=== PATIENT | female | born 1945 | race Caucasian/White ===

== ENCOUNTER 2016-05-23 08:03 | Day surgery (SDC) | payer MEDICARE ==
[~2016-05-23 08:03] MED LIST: CEFAZOLIN SODIUM 2 GRAM PREMIX 100 ML IV ONE; GENTAMICIN SULFATE 320 MG in SODIUM CHLORIDE 0.9% 100 ML IV PRN; IV START KIT ONE; LACTATED RINGERS 1,000 ML ONE
[2016-05-23] MEDS ORDERED: CEFAZOLIN SODIUM 2 GRAM DUPLEX 50 ML IV PRN (08:30)
[2016-05-23] MEDS ORDERED: KETAMINE HCL UD SYRINGE 100 MG/2 ML IV ONE (08:48)
[2016-05-23] MEDS ORDERED: BUPIVACAINE 0.75% SPINAL AMPUL 2 ML ONE ×2 (08:48→10:58)
[2016-05-23] MEDS ORDERED: ONDANSETRON 4 MG/2ML 2 ML VIAL ONE (08:48)
[2016-05-23] MEDS ORDERED: MIDAZOLAM HCL 1 MG/ML 2ML VIAL ONE ×2 (08:48→10:55)
[2016-05-23] MEDS ORDERED: FENTANYL 100 MCG/2 ML VIAL ONE (08:48)
[2016-05-23] MEDS ORDERED: LIDOCAINE 2% (MULTI DOSE) 10 ML VIAL ONE (08:48)
[2016-05-23] MEDS ORDERED: PROPOFOL 40 ML IV ONE (08:48)
[2016-05-23] MEDS ORDERED: METOCLOPRAMIDE HCL 5 MG/ML 2ML VIAL ONE (08:49)
[2016-05-23] MEDS ORDERED: DEXAMETHASONE SOD PHOS 4 MG/1 ML VIAL ONE (08:49)
[2016-05-23] MEDS ORDERED: BUPIVACAINE 0.5% (PRES FREE) 30 ML VIAL ONE (10:07)
[2016-05-23] MEDS ORDERED: LIDOCAINE 0.5%/EPI 1:200,000 (MULTIDOSE) 50 ML VIAL ONE (10:07)
[2016-05-23] MEDS ORDERED: ESTROGENS,CONJUGATED CREAM 30 G/TUBE VG ONE (10:07)
[2016-05-23] MEDS ORDERED: METRONIDAZOLE 20 APPLIC/70 G TUBE ONE (10:07)
[2016-05-23] MEDS ORDERED: SODIUM CHLORIDE 0.9% 100 ML ONE (10:07)
[2016-05-23] MEDS ORDERED: OPIUM/BELLADONNA ALKALOIDS 1 EACH SUP PR ONE (10:29)
[2016-05-23] MEDS ORDERED: NEOMY SULF/POLYMYXIN B SULFATE 1 ML AMP IR ONE (10:29)
[2016-05-23] MEDS ORDERED: EPIDURAL PROCEDURE TRAY ONE (10:55)
[2016-05-23] MEDS ORDERED: ROPIVACAINE 0.5% 30 ML VIAL ONE (11:20)
[2016-05-23] MEDS ORDERED: PROMETHAZINE HCL 25 MG/ML VIAL IM PRN (11:37)
[2016-05-23] MEDS ORDERED: HYDROMORPHONE HCL 1 MG/ML SYRINGE IV PRN (11:37)
[2016-05-23] MEDS ORDERED: ONDANSETRON 4 MG/2ML 2 ML VIAL IV PRN ×2 (11:37→12:58)
[2016-05-23] MEDS ORDERED: FENTANYL 100 MCG/2 ML VIAL IV PRN (11:37)
[2016-05-23] MEDS ORDERED: ATROPINE SULFATE 0.4 MG/1 ML VIAL IV PRN (11:37)
[2016-05-23] MEDS ORDERED: NALOXONE HCL 0.4 MG/ML VIAL IV PRN (11:37)
[2016-05-23] MEDS ORDERED: LACTATED RINGERS 1,000 ML IV SCH (11:45)
[2016-05-23] MEDS ORDERED: MORPHINE SULFATE 2 MG/ML SYRINGE IV PRN (12:58)
[2016-05-23] MEDS ORDERED: HYDROCODONE/ACETAMINOPHEN 5/325MG TABLET PO PRN (12:58)
[2016-05-23] MEDS ORDERED: LACTATED RINGERS 1,000 ML ONE (13:14)
--- NOTE | 2016-05-23 14:14 | OP ---
JAVIER LOVELACE [id number] DATE OF OPERATION: May 23, 2016 SURGEON: Jared Avalos M.D. NANOSYSTEMS ENGINEER: Cheryl Garcia ANESTHESIA: Spinal. PREOPERATIVE DIAGNOSES: 1. Cystocele grade 2 to 3 with dysfunctional voiding. 2. Urethral hypermobility causing stress incontinence. 3. Secondary idiopathic detrusor overactivity causing urgency. POSTOPERATIVE DIAGNOSES: 1. Cystocele grade 2 to 3 with dysfunctional voiding. 2. Urethral hypermobility causing stress incontinence. 3. Secondary idiopathic detrusor overactivity causing urgency. PROCEDURE: 1. CYSTOSCOPY. 2. TROCAR SUPRAPUBIC CYSTOSTOMY TUBE PLACEMENT WITH DRAINAGE. 3. ANTERIOR MESH CYSTOCELE REPAIR. 4. SUBURETHRAL SLING. SPECIMENS: None. INDICATIONS: Patient is a 71-year-old woman with a long history of urge symptoms and increasing urinary tract infections, seen for a sense of pelvic pain. Urodynamic studies demonstrated a grade 2 to 3 cystocele with mild dysfunctional voiding as well as ureteral hypermobility causing stress incontinence. She does have a previous history of a "retropubic bladder cinch" in , and a hysterectomy. She has elected surgical intervention at this time. FINDINGS: Grade 2 to 3 cystocele with relatively sharp kinking toward the bladder neck. Urethra hypermobility present. No intravesical lesions. At the end of the case, patent ureters were demonstrated bilaterally and there were no other surgical materials were intruding on the bladder or urethra aside from the suprapubic tube. PROCEDURE: The patient was identified and brought to the operating room where spinal anesthetic was applied and she was placed in a dorsal lithotomy position. The lower abdomen, genitalia, and vagina were prepped and draped sterilely. We marked a site 2 cm above the pubic brim in the midline and at the level of the clitoris in the groin folds. These were treated with 0.5% Marcaine and the suprapubic site was opened with a stab incision. Cystoscopy was performed with a 17 Italian scope using water as an irrigant. Findings are reported above. We placed the patient in Trendelenburg position as we used the scope to overdistend the bladder. We then, during expiratory phase, we used a Bard 12 Italian trocar suprapubic tube system to access the high anterior wall of the bladder under direct vision. The trocar and stylet were removed, and the balloon was inflated and seated against the bladder wall. It was allowed to drain throughout the case and ultimately secured at the level of the skin with #2-0 nylon. The cystoscope was removed and replaced with a Guerrier catheter to gravity drainage. A posterior weighted speculum was inserted followed by a Nerstrand type retractor for labial retraction. We identified the position of the bladder neck and then injected 0.5% lidocaine with epinephrine subvesically. Laterally and posteriorly we used injectable saline to complete a hydrodissection. An inverted C incision toward the bladder neck and the vaginal flap elevated away from the bladder base all the way back to the anterior apex of the vagina and to the pelvic sidewalls. We were able to go through the pelvic floor and sweep tissues away past the sacrospinous ligament on both sides. A #2-0 Vicryl sutures was preplaced in the apex midline on the vaginal side. We then used a Capio device to pass the posterior barbed limbs of an Uphold Lite graft into position on the sacrospinous ligaments on both sides. These were pulled back into position in the midline of the graft posteriorly was secured to the preplaced #2-0 Vicryl suture. Next, we tensioned the posterior limbs into a normal position and removed the plastic sleeves and retaining suture. Anteriorly, the lip of the graft was secured subvesically with #2-0 Vicryl sutures. We irrigated with genitourinary irrigant containing some Betadine paint and then closed the vaginal wound with a running #2-0 Vicryl suture. Attention was then turned suburethrally where the tissues were treated with 0.5% lidocaine centrally and injectable saline laterally. We opened a transverse suburethral incision and dissected a pocket for a sling to sit in, and then tunneled out toward the pubis on both sides. The previously treated groin sites were opened with stab incisions, and Halo type carriers were used to come around the medial aspect of the obturator foramen and the tips were delivered into the dissected vaginal tunnels. Carriers were then used to draw a polypropylene mesh graft from the vaginal aspect out to the groin folds on each side. Tensioning was completed with a 20 Italian sound as a suburethral spacer and the sleeves on the graft were removed. With the graft in good position, we irrigated with genitourinary irrigant containing some Betadine paint and closed the vaginal wound with a running #2-0 Vicryl suture. All retractors were then removed, and cystoscopy was repeated. We used a floppy tip wire to check the patency of both ureters. Finding no difficulty there, the cystoscope was withdrawn and a final check on the urethral position was done with a sound. Finding no unwanted upward traction, we irrigated the vagina and then applied estrogen cream to the suture line followed by a vaginal pack containing Flagyl gel. The groin wounds were closed with Dermabond type adhesive underneath Benzoin and SteriStrips. After the suprapubic tube was secured and a Nicolle Pad applied, the patient was taken in stable condition to the post anesthesia room. Sponge and needle counts were correct. Estimated blood loss less than 50 mL. No early complications. Patient tolerated the procedure well and was taken in stable condition to the post anesthesia room. cc: Jared Avalos M.D. Amna Cullen M.D.
== END 2016-05-23 16:39 | disposition home or self-care (01) ==
LOC: SDC 08:03
PROVIDERS: ATTEND Urology
PROC: 0JQC0ZZ Repair Pelvic Region Subcutaneous Tissue and Fascia, Open Approach (ICD-10-PCS; principal; 2016-05-23)
PROC: 0TSD0ZZ Reposition Urethra, Open Approach (ICD-10-PCS; 2016-05-23)
PROC: 0T9B0ZZ Drainage of Bladder, Open Approach (ICD-10-PCS; 2016-05-23)
DX: N81.10 Cystocele, unspecified (principal); N36.41 Hypermobility of urethra; N39.3 Stress incontinence (female) (male); R39.15 Urgency of urination; I10 Essential (primary) hypertension; K21.9 Gastro-esophageal reflux disease without esophagitis; E03.9 Hypothyroidism, unspecified; E78.00 Pure hypercholesterolemia, unspecified; Z88.8 Allergy status to other drugs, medicaments and biological substances; Z88.0 Allergy status to penicillin; Z79.891 Long term (current) use of opiate analgesic; Z79.899 Other long term (current) drug therapy
CPT/HCPCS: 57240; 57288; 51102; 57267; J3010; J1580; J1100; A9270 ×3; J2795; J2765; J2250 ×2; J2405; J7120 ×2; J7050; J2001; J0690